=== PATIENT | female | born 1995 ===

== ENCOUNTER 2025-03-14 06:22 | Emergency (ER) | payer OTHER ==
[~2025-03-14] VITALS: Ht 160 cm; Wt 127.0 kg
--- NOTE | 2025-03-14 07:40 | ED.PDOC ---
Musculoskeletal HPI Comments 29 year old female presents to the emergency department with a chief complaint of bilateral knee pain s/p fall onset today around 03:00. Patient states she was at work, slipped on wet floor, landed on bilateral knees. She works in [place], was able to drive home, came to ED due to worsening pain. Rates pain 7/10 with ambulation, 5/10 when sitting. No other symptoms or modifying factors present at this time. Denies skin color changes around the knee Denies masses around the knee Denies fever chills night sweats nausea vomiting Denies previous surgeries to the knee nor significant injury Denies head injury, LOC Chief Complaint: Lower Extremity Time Seen by MD: 07:20 Reviewed Notes: Nurses Notes, Medications, Allergies Allergies: Coded Allergies: NO KNOWN ALLERGIES (Unverified , 03/14/25) Information Source: Patient Mode of Arrival: Ambulatory Location: Bilateral Extremity Location: Knee Timing: Hours Prehospital treatment: None Severity: Moderate Able to Move Extremity: Yes Bear Weight: Fully Pain: Moderate Mechanism: Spontaneous Circumstances: Work Related, Fall Onset of Symptoms: After Trauma Symptoms: Pain DVT Risk Factors: NONE Associated signs and symptoms: Knee pain Past Medical History PAST MEDICAL HISTORY: Denies Surgical History: Denies all surgeries KENNEL MANAGER History: No Pertinent KENNEL MANAGER History Family History Family History: Reviewed,noncontributory to illness, No family hx of Cancer, No family hx of DM, No family hx of Heart lisset, No family hx of HTN, No family hx ofKidney lisset, No family hx of Liver lisset, No family hx of Lung lisset, No family hx of Stroke Social History Smoker: Non-Smoker Alcohol: Denies ETOH Use Drugs: Denies Drug Use Lives In: Home All Other Systems: Reviewed and Negative (as per hpi) Physical Exam General Appearance: No Apparent Distress, Normal HEENT: Normal ENT Inspection, Pharynx Normal, TMs Normal Neck: Full Range of Motion, Non-Tender, Normal, Normal Inspection Respiratory: Chest Non-Tender, Lungs Clear, No Accessory Muscle Use, No Respir atory Distress, Normal Breath Sounds Cardiovascular: No Edema, No JVD, No Murmur, No Gallop, Normal Peripheral Pulses, Regular Rate/Rhythm Breast Exam: Deferred Gastrointestinal: No Organomegaly, Non Tender, No Pulsatile Mass, Normal Bowel Sounds, Soft Genitalia: Deferred Pelvic: Deferred Rectal: Deferred Extremities: No calf tenderness, Normal capillary refill, Normal inspection, Normal range of motion, Non-tender, No pedal edema Musculoskeletal : Apperance: Normal Neurologic: Alert, molded frames assembler II-XII nml as Tested, No Motor Deficits, Normal Affect, Normal Mood, No Sensory Deficits Cerebellar Function: Normal Reflexes: Normal Skin: Dry, Normal Color, Warm Lymphatic: No Adenopathy Was a procedure done? Was a procedure done?: No Differential Diagnosis EXT Differential Diagnosis: Fracture, Sprain, Dislocation X-Ray, Labs, Meds, VS Vital Signs Date Time Temp Pulse Resp B/P (MAP) Pulse Ox O2 Delivery O2 Flow Rate FiO2 03/14/25 09:00 98.7 68 16 136/82 (100) 98.7 03/14/25 09:00 68 16 98 Room Air 03/14/25 06:29 98.1 84 16 129/88 98 98.1 X-Ray, Labs, Meds, VS Comment 29 year old female presents to the emergency department with a chief complaint of bilateral knee pain s/p fall onset today around 03:00. Patient arrives alert and oriented, ABC's intact, afebrile, vital signs stable, saturating well in room air Diagnostic imaging ordered by me and results interpreted by radiology : XY R KNEE 3V: XY L KNEE 3V : Prescribed NSAIDs for the management of acute knee pain. Recommend light walking under the sun for 30 minutes a day Avoiding running jogging high-impact activities Stretch as tolerated Ice 3x/day for 5 minutes Wear knee brace for stability as needed, elevate leg swelling aggravated Additional MDM Review of External, Non-ED records: External records reviewed. Discussion with independent historian (EMS, family) history obtained from the patient/parents (if applicable) at bedside Chronic conditions affecting care: None Social determinants of health affecting care: None I considered escalation of care to admission for this patient, however given the reassuring workup, the patient is safe for outpatient management. On reevaluation, patient had symptomatic improvement. Patient is stable for discharge at this time. External notes reviewed. Test results and diagnostic imaging interpreted. All diagnostic findings, discharge care, education and instructions provided Follow-up with PCP in 2 to 3 days Patient verbalized understanding and agreed to treatment plan Vital signs stable, afebrile, no acute distress noted Patient ambulatory with strong steady gait Advised to return precautions for any new or worsening symptoms, return to ER immediately for re-evaluation Patient is aware that the purpose of this visit was for an acute medical emergency requiring emergent stabilization. Chronic conditions, including malignancies have not been ruled out. Patient is instructed to follow up with PCP as directed and discharge instructions for continued care and workup. If unable to arrange follow-up, patient is to return to the emergency department for reassessment. Patient (parent or legal guardian if applicable) was given verbal and written discharge instructions and acknowledges understanding. Time of 1ST Reevaluation: 07:50 Reevaluation 1ST: Improved Patient Education/Counseling: Diagnosis, Treatment Family Education/Counseling: No Family Present Departure 1 Departure Time of Disposition: 08:44 Impression: Primary Impression: Tricompartment osteoarthritis of both knees Disposition: 01 HOME / SELF CARE / HOMELESS Condition: Stable Discharged With: Self Critical Care Note Critical Care Time?: No Stability Stability form required: No Heart Score Heart Score: Heart Score Response (Comments) Value History N/A 0 EKG N/A 0 Age N/A 0 Risk Factors N/A 0 Troponin N/A 0 Total 0 I personally scribed for EDDIE BOYER NP ([email or web address]) on 03/14/25 at 07:40. Electronically submitted by Ananya Rizzo ([email or web address]). EDDIE BOYER NP Mar 14, 2025 07:40
--- NOTE | 2025-03-14 08:22 | DVH ---
EXAM: XY R KNEE 3V XRAY CLINICAL INDICATION: Fall. R/o fracture/dislocation TECHNIQUE: XY R KNEE 3V XRAY Comparison: None FINDINGS/IMPRESSION: There is no evidence of acute fracture or dislocation. Moderate bilateral tricompartemental joint space narrowing,. The alignment is anatomical. There is no radiopaque foreign body.
--- NOTE | 2025-03-14 08:22 | DVH ---
EXAM: XY L KNEE 3V XRAY, XY R KNEE 3V XRAY CLINICAL INDICATION: Fall. R/o fracture/dislocation TECHNIQUE: XY L KNEE 3V XRAY, XY R KNEE 3V XRAY Comparison: None FINDINGS/IMPRESSION: There is no evidence of acute fracture or dislocation. Moderate bilateral tricompartemental joint space narrowing,. The alignment is anatomical. There is no radiopaque foreign body.
[2025-03-14 09:00] VITALS: BP 136/82; PULSE 68; RESP 16; TEMP 98.7; O2SAT 98
== END 2025-03-14 09:03 | disposition home or self-care (01) ==
LOC: ER 06:22
DX: M17.0 Bilateral primary osteoarthritis of knee (principal)
CPT/HCPCS: 73562